=== PATIENT | male | born 1990 | race Caucasian/White ===

== ENCOUNTER 2022-04-16 08:36 | Outpatient (RCR) | payer OTHER, SELFPAY ==
--- NOTE | 2022-04-16 11:38 | HP.PTEVAL_ITS ---
Patient's Visit Information CHRIS HIGHTOWER is a 32 year old M referred to Physical Therapy by LOURDES Edwards with a diagnosis of STRAIN OF MUSCLE AND TENDON AT LOWER LEG ,STRAIN OF MUSCLE/TENDON SHOULDER. Date of Evaluation: 04/16/22 Physical Therapist: Sharad Anaya, PT, Cert MDT, OCS - Visit Plan Frequency: 2x /Week Duration: 4 Weeks Plan: PT INTERVENTIONS ROM/STENGTHENING RTC/SCPAPULAR , QUADS/HAMS/HIP ,POSTURAL EX'S AND MODALTIES FOR PAIN/EDEMA - Subjective This 32 y/o male presents to physical therapy with left lower leg pain and left shoulder pain. This patient at work fell about 10 ft into trenvh and landed on left side DOI 04/13/22. Patient didn't have immediate pain but symptoms persisted on 2nd job . Patient didn't go to work on 04/15/[address] at [facility] DID x-rays knee and shoulder . Patient initially had a lot of edema in knee but getting better. Patient pain is better but does have edema increases throughout day. Pain in shoulder anterior region. Aggravating factors with edema is movement squatting/kneeling, stairs and extended walking. Running increase pain. Alleviating factors rest.. Aggravating factors in shoulder with lifting and OH activities. Alleviating factors rest. MEDS prednisone and muscle relaxers. Denies paresthesia/tingling. Patient is sleeping. Patient goals no pain and return to work. SOCAIL: single. VOCATION: [employer] - Pain Left Shoulder Pain Intensity (Out of 10): 5 Pain Intensity Range: 10 Comment: movement Left Knee Pain Intensity (Out of 10): 0 Pain Intensity Range: 10 - Objective POSTURE: WFL. GAIT: reciprocal pattern. EDEMA: effusion knee 1+. AROM SHOULDER : flexion 150 degrees ,abduction 150 degrees ,ER 90 degrees ,IR T 11. AROM KNEE : 0-130 degrees supine flexion. MMT: quads/hams 5/5 ,hip 4/5 ankle 5/5. MMT: RTC 4/5 except 4-/5 supraspinatus deltoid 4-/5 - Special Tests L Knee Madhavi - Meniscus: Negative L Knee Timothy - ACL: Negative L Knee Anterior Drawer - ACL: Negative L Knee Posterior Drawer - PCL: Negative L Knee Valgus - MCL: Negative L Knee Varus - LCL: Negative L Knee Patellar Apprehension - PFS: Negative L Shoulder Drop Sign - IS Test: Negative L Shoulder Empty Can - SS: Negative L Shoulder Neer - Impingement: Negative L Shoulder Welch Randolph - Impingement: Negative L Shoulder Speeds Test - Labrum/Biceps: Negative - Balance/Special Test Scores Quick DASH Score: 34.0900 - Goals Goal 1:: I with HEP Goal Time Frame: 4-6 Weeks Goal 2:: Patient to abolish edema left knee to improve ROM with squatting for jobemands. Goal Time Frame: 4-6 Weeks Goal 3:: Patient to demonstrate 70% improvement with left knee and shoulder for function and job demands Goal Time Frame: 4-6 Weeks Goal 4:: Patient to improve quick dash by 5 points to improve QOL and job demands Goal Time Frame: 4-6 Weeks Goal 5:: Patient to be able perform activities with left UE with min to no limitations. Goal Time Frame: 4-6 Weeks - Rehabilitation Potential Physical Therapy Diagnosis: This patient fell and landed on left side caused pain and edema in left knee with stiffness and swelling increases with activity and working on feet along with pain shoulder with OH especially with side mild weakness with RTC supraspinatus with pain affects job demands with OH activity and walking standing squatting thus benefit from skilled PT Rehabilitation Potential: Good - Anticipated Interventions Patient/Client Instruction: Educate patient on: Condition, Plan of Care For the Purpose of:: To decrease pain, To increase ROM, To improve muscle performance and motor function, To improve ability to perform ADL's, To increase tolerance to activity/condition/position, To improve ability of physical actions for home/community/work/leisure, To improve health of tissue, To decrease soft tissue restriction, To increase flexibility/ROM, To prevent re-injury Therapeutic Exercise to Include: Strength training, Power training, Body mechanics, Postural training, Flexibilty training, Active ROM Comment: RTC ,QUADS/HAMS/HIP For the Purpose of:: To decrease pain, To increase ROM, To improve muscle performance and motor function, To improve ability to perform ADL's, To increase tolerance to activity/condition/position, To improve ability of physical actions for home/community/work/leisure, To improve health of tissue, To decrease soft tissue restriction, To increase flexibility/ROM, To prevent re-injury TENS: Yes IF ES: Yes Cryotherapy (ice pack, ice massage): Yes Thermo therapy (hot pack): Yes Ultrasound (thermal/non thermal): Yes For the Purpose of:: To decrease pain, To increase oxygenation perfusion, To improve health of tissue, To decrease soft tissue restriction Thank you for the opportunity to evaluate your patient. For Medicare and Medicare HMO plans, please review the plan of care and approve it. It will need to be FAXED BACK to us at [phone] for Medicare purposes. For Medicare only, by signing this I certify the plan of care. Please let me know if there are questions or concerns regarding this plan of care. Physician Signature:__ Date:
--- NOTE | 2022-09-28 12:46 | HP.PT.NRP ---
CHRIS HIGHTOWER was seen in my office for initial evaluation on 04/16/22. The following Plan of Care was established for this patient: Initial Frequency: 2x /Week Initial Duration: 4 Weeks Patient/Client Instruction: Educate patient on: Condition, Plan of Care For the Purpose of:: To decrease pain, To increase ROM, To improve muscle performance and motor function, To improve ability to perform ADL's, To increase tolerance to activity/condition/position, To improve ability of physical actions for home/community/work/leisure, To improve health of tissue, To decrease soft tissue restriction, To increase flexibility/ROM, To prevent re-injury Therapeutic Exercise to Include: Strength training, Power training, Body mechanics, Postural training, Flexibilty training, Active ROM For the Purpose of:: To decrease pain, To increase ROM, To improve muscle performance and motor function, To improve ability to perform ADL's, To increase tolerance to activity/condition/position, To improve ability of physical actions for home/community/work/leisure, To improve health of tissue, To decrease soft tissue restriction, To increase flexibility/ROM, To prevent re-injury TENS: Yes IF ES: Yes Cryotherapy (ice pack, ice massage): Yes Thermo therapy (hot pack): Yes Ultrasound (thermal/non thermal): Yes For the Purpose of:: To decrease pain, To increase oxygenation perfusion, To improve health of tissue, To decrease soft tissue restriction This patient was last seen in our office . Pertinent comments regarding their Physical therapy will appear below: Patient seen for PT for strain of shoulder and lower leg thus is d/c from PT At this point I will be discontinuing this patient from physical therapy. I would be happy to see this patient again in the future if found appropriate by the physician. Thank you! Sharad Anaya, PT, Cert MDT, OCS Balance/Gait/Functional tests - Balance/Special Test Scores Quick DASH Score: 34.0900
== END 2022-04-16 19:00 | disposition home or self-care (01) ==
LOC: PT 08:36
PROVIDERS: Referring Provider Physician Assistant; Visit Provider Physician Assistant
DX: S86.912D Strain of unspecified muscle(s) and tendon(s) at lower leg level, left leg, subsequent encounter (principal); S46.912D Strain of unspecified muscle, fascia and tendon at shoulder and upper arm level, left arm, subsequent encounter
CPT/HCPCS: 97110; 97162

== ENCOUNTER 2025-04-10 12:06 | Emergency (ER) | payer OTHER, SELFPAY ==
[2025-04-10 12:07] VITALS: BP 152/103; PULSE 82; RESP 14; TEMP 36.6; O2SAT 98; BMI 38.4
--- NOTE | 2025-04-10 13:41 | ED.VIS.LOWEX ---
HPI History of Present Illness Chief Complaint: Lower Extremity Injury Narrative Narrative: 35-year-old male postoperative day 5 from meniscal surgery performed by Dr. Jet Beverly. He states he has been immobile secondary to the surgery on his knee. He is unable to take the pain medication hydrocodone acetaminophen because it makes him vomit 30 minutes later. However, he is not complaining of left knee pain where surgery was performed but noticed swelling of his left lower extremity and has pain in his calf. He denies any chest pain or shortness of breath. He was contacted by orthopedics today, and had an outpatient ultrasound which was positive for DVT so he was brought to the emergency department. [facility] Medical History Encounter for examination required by Department of Transportation (DOT) Left shoulder strain Strain of left knee Home Medications ?Medication ?Instructions ?Recorded ?Last Taken ?Type cyclobenzaprine 10 mg tablet 10 mg PO TID PRN muscle spasm #30 04/15/22 Unknown Rx tabs prednisone 10 mg tablet 10 mg PO DAILY #30 tabs 04/15/22 Unknown Rx meloxicam 15 mg tablet 15 mg PO DAILY #30 tabs 04/19/22 Unknown Rx apixaban 5 mg (74 tabs) tablets in See Rx Instructions PO .COMPLEX 04/10/25 Unknown Rx a dose pack (Eliquis DVT-PE Treat #74 tabs 30D Start) Allergy/AdvReac Type Severity Reaction Status Date / Time amoxicillin Allergy Nausea/Vom/ Verified 04/10/25 12:07 Diarrhea Social History Smoking Status: Current every day smoker ROS ROS ED ROS Narrative Review of systems positive for left calf pain. No postsurgical pain. No chest pain, no shortness of breath. [place] feverish yesterday. Nausea and vomiting after taking hydrocodone. EXAM Physical Exam Narrative Exam Narrative: Afebrile. Vital signs noted. Nontoxic-appearing. Cardiovascular examination feels a regular rate and rhythm, no tachycardia. Lungs clear to auscultation bilaterally. Abdomen soft and nontender. Inspection of the left knee shows it wrapped in an Zack wrap. There is mild tenderness to palpation with diffuse swelling of the left calf and left foot. Good capillary refill of toes. Const Vital Signs: 04/10/25 12:07 Temperature 98 F Temperature Source Temporal Pulse Rate 82 Respiratory Rate 14 Blood Pressure 152/103 H Blood Pressure Mean 119 Pulse Ox 98 Oxygen Delivery Method Room Air MDM MDM MDM Narrative Medical decision making narrative: I do not feel differential diagnosis is applicable as he presents to the emergency department with venous Doppler report which shows that he has a acute deep vein thrombosis of the posterior cheerier tibial vein and of the peroneal vein that are both not compressible. I do not feel that he needs lab work or imaging. He is not complaining of chest pain or shortness of breath, and he will be started on Eliquis which would treat any pulmonary embolism. He was told of the risk of spontaneous hemorrhage both intracranially and in the gastrointestinal system. He was also told of his propensity to bleed and that he should stop taking the aspirin that he is taking as well as any NSAIDs. I discussed patient with Dr. Jet Beverly, who will follow-up with the patient regarding his orthopedic surgery but suggested primary care follow-up for continued treatment of his DVT. I refer the patient to Dr. Rhodes with vascular surgery. He was given his first dose of Eliquis 10 mg here in the emergency department and a prescription written for starter pack to treat DVT/PE. His pulse ox is 98% on room air without evidence of hypoxia. I also discussed with him changing his pain medication, but he declined stating that his knee feels fine it is just his lower extremity and calf pain that he is having. He will take Tylenol [id number]. Return instructions to the emergency department were reviewed. Disposition is discharged home in stable condition. History & Record Review Discussion w/independent historian: Patient and Family Management Discussion w/another healthcare provider: Patient Scheduling Manager (Dr. Jet Beverly, orthopedics) Discharge Plan Triage Chief Complaint: Lower Extremity Injury ED Provider: Jay Washington Dx/Rx/DC Orders Clinical Impression: DVT of lower extremity (deep venous thrombosis), Left leg pain Instructions: ED Deep Vein Thrombosis (DVT) Prescriptions: New Eliquis DVT-PE Treat 30D Start 5 mg (74 tabs) tablets,dose pack See Rx Instructions .ROUTE .COMPLEX Qty: 74 0RF Rx Instructions: orally per package directions No Action prednisone 10 mg tablet 10 mg PO DAILY Qty: 30 0RF Rx Instructions: 4 tablets daily x3 days, then 3 tablets daily x3 days, then 2 tablets daily x3 days, then 1 tablet daily x3 days cyclobenzaprine 10 mg tablet 10 mg PO TID PRN (Reason: muscle spasm) Qty: 30 0RF meloxicam 15 mg tablet 15 mg PO DAILY Qty: 30 0RF Primary Care Provider: Care Physician,No Primary Referrals: Jamie Rhodes MD [Med Staff - Active Staff] - 3-5 Days Jet Beverly MD [Med Staff - Active Staff] - Keep Mimi appointment Care Physician,No Primary [Primary Care Provider] - Activity Restrictions/Additional Instructions: Take your blood thinner as directed. Stop taking any nonsteroidal anti-inflammatory drugs, stop taking aspirin. You may have a propensity to bleed if you sustain a cut. There is also risk of spontaneous hemorrhage intracranially and in the GI system. Follow-up with vascular surgery within the next week. Return to the emergency department with chest pain, shortness of breath, new or worsening symptoms. Print Language: Kazakh Disposition Disposition: Home, Self Care
[2025-04-10] MEDS: APIXABAN 5 MG TABLET 10 MG PO (13:52)
[2025-04-10 14:17] VITALS: BP 142/89; PULSE 88; RESP 15; TEMP 36.6; O2SAT 98
== END 2025-04-10 14:18 | disposition home or self-care (01) ==
LOC: ED 13:46
PROVIDERS: Emergency Provider Emergency Medicine; Referring Provider Emergency Medicine; Visit Provider Emergency Medicine
DX: I82.442 Acute embolism and thrombosis of left tibial vein (principal); I82.452 Acute embolism and thrombosis of left peroneal vein; F17.200 Nicotine dependence, unspecified, uncomplicated
CPT/HCPCS: 99282

== ENCOUNTER → 2025-04-10 | Outpatient (CLI) | payer OTHER, SELFPAY ==
--- NOTE | 2025-04-10 11:02 | VDLE_ITS ---
Reason For Study Reason For Study: Swelling RIGHT LEFT CFV is compressible, spontaneous, phasic, competent GSV is normal. and demonstrates normal augmentation. CFV is compressible, spontaneous, phasic, competent, Procedure and demonstrates normal augmentation. This is a venous duplex using B-mode, color flow and FV is compressible, spontaneous, phasic, competent and spectral Doppler. demonstrates normal augmentation. Exam performed in department. POP V is compressible, spontaneous, phasic, competent Left voicemail for Jet Beverly MD office. and demonstrates normal augmentation. Took PT to ER. T/P Trunk is compressible. Acute deep vein thrombosis is noted in the PTV. It is dilated and NONCOMPRESSIBLE. Acute deep vein thrombosis is noted in the Per V. It is dilated and NONCOMPRESSIBLE. VL/Venous Duplex US, Unilateral Interpretation Summary Acute deep vein thrombosis noted in the left posterior tibial vein, peroneal ve in. Ordering Physician: Jet Beverly Performed By: Claudine Marley, RVT
== END | disposition home or self-care (01) ==
LOC: CVS 11:00
PROVIDERS: Referring Provider Orthopaedic Surgery; Visit Provider Orthopaedic Surgery
DX: M79.662 Pain in left lower leg (principal); R22.42 Localized swelling, mass and lump, left lower limb
CPT/HCPCS: 93971